=== PATIENT | male | born 1955 | race Caucasian/White ===

== ENCOUNTER 2016-10-22 13:04 | Day surgery (SDC) | payer BC ==
[~2016-10-22] VITALS: Ht 190.5 cm; Wt 80.3 kg
[2016-10-22 13:26] VITALS: BP 130/83; PULSE 63; TEMP 97.9
[2016-10-22 14:55] VITALS: BP 103/73; PULSE 65; TEMP 97.7
[2016-10-22 15:10] VITALS: BP 114/78; PULSE 58
[2016-10-22 15:25] VITALS: BP 119/85; PULSE 55
== END 2016-10-22 15:45 | disposition home or self-care (01) ==
LOC: SDCO 13:04
DX: K57.30 Diverticulosis of large intestine without perforation or abscess without bleeding (principal); R14.0 Abdominal distension (gaseous)
CPT/HCPCS: J2250; J3010; J7030